=== PATIENT | female | born 1980 | race Hispanic/Latino ===

== ENCOUNTER 2017-01-19 11:41 | Emergency (ER) | payer SELFPAY ==
[~2017-01-19] VITALS: Ht 157.5 cm; Wt 71.0 kg
[2017-01-19 11:47] VITALS: BP 130/43
[2017-01-19] MEDS ORDERED: ULTRAM50 MG PO (12:09)
== END 2017-01-19 12:30 | disposition home or self-care (01) ==
LOC: EME 11:41
DX: S61.216A Laceration without foreign body of right little finger without damage to nail, initial encounter (principal); W26.8XXA Contact with other sharp object(s), not elsewhere classified, initial encounter; Y93.E5 Activity, floor mopping and cleaning
CPT/HCPCS: 99281; 99283